=== PATIENT | male | born 1975 | race Caucasian/White ===

== ENCOUNTER 2016-10-11 16:26 | Emergency (ER) | payer MEDICAID ==
[2016-10-11] MEDS ORDERED: Sodium Chloride 0.9% 1,000 ML IV ONE (17:59)
[2016-10-11] MEDS ORDERED: Belladonna-Phenobarbital PO STA (17:59)
[2016-10-11] MEDS ORDERED: Lidocaine 2% Viscous 100 ml PO STA (17:59)
[2016-10-11] MEDS ORDERED: Aluminum Hydroxide/Magnesium Hydroxide Susp (30 mL) PO STA (17:59)
[2016-10-11 18:16] LABS: RBC URINE < 1 /hpf (0-3); URINE BILIRUBIN NEGATIVE (NEGATIVE); URINE BLOOD NEGATIVE (NEGATIVE); URINE COLOR Straw (YELLOW); URINE GLUCOSE (UA) NORMAL (Normal); URINE KETONE NEGATIVE (NEGATIVE); URINE LEUKOCYTE ESTERASE NEG Leu/uL (Negative); URINE PROTEIN NEGATIVE (NEGATIVE); URINE UROBILINOGEN NORMAL mg/dL (0.2-1.0)
--- NOTE | 2016-10-11 18:37 | C.PDOC ---
History Of Present Illness <Kamila Pascal - Last Filed: 10/11/16 19:00> <YaahansaSurya - Last Filed: 10/11/16 22:44> The patient, a 41 y/o male, presents to the ED for evaluation of severe acid reflux which began around 6 days ago. Patient also reports abdominal pain which he describes as a "soreness and burning." Patient states he has taken Zantac, Pepto-Bismol, and Tums without relief. Patient states he has a good appetite but experiences a heart burning sensation whenever he eats any food. Patient admits he quit smoking around 2 weeks ago; he also states he drank a couple beers around 4 days ago. Otherwise, he denies fever, chills, chest pain, vomiting, diarrhea, constipation. (GwynKamila L) History Per: Patient History/Exam Limitations: no limitations Onset/Duration Of Symptoms: Days (6) Current Symptoms Are (Timing): Still Present Radiation Of Pain To:: None Quality Of Discomfort: Burning, Other (+soreness ) Associated Symptoms: denies: Fever, Chills, Nausea, Vomiting, Diarrhea, Chest Pain, Constipation Exacerbating Factors: Food Alleviating Factors: denies: OTC Meds Last Bowel Movement: Today Additional History Per: Patient <Kamila Pascal - Last Filed: 10/11/16 19:00> <GermanSurya - Last Filed: 10/11/16 22:44> Time Seen by Provider: 10/11/16 17:53 Chief Complaint (Nursing): Abdominal Pain Past Medical History Reviewed: Historical Data, Nursing Documentation, Vital Signs - Medical History PMH: HTN Family History: States: Unknown Family Hx - Social History Hx Alcohol Use: Yes Hx Substance Use: No - Immunization History Hx Tetanus Toxoid Vaccination: No Hx Influenza Vaccination: No Hx Pneumococcal Vaccination: No <Kamila Pascal - Last Filed: 10/11/16 19:00> Vital Signs: Last Vital Signs Temp 98.8 F 10/11/16 16:45 Pulse 107 H 10/11/16 16:45 Resp 18 10/11/16 16:45 BP 153/95 H 10/11/16 16:45 Pulse Ox 96 10/11/16 19:02 Review Of Systems Except As Marked, All Systems Reviewed And Found Negative. Constitutional: Negative for: Fever, Chills Cardiovascular: Negative for: Chest Pain Gastrointestinal: Positive for: Abdominal Pain, Other (+acid reflux). Negative for: Nausea, Vomiting, Diarrhea, Constipation <Kamila Pascal - Last Filed: 10/11/16 19:00> Physical Exam - Physical Exam Appears: Non-toxic, No Acute Distress Skin: Normal Color, Warm, Dry Head: Atraumatic, Normacephalic Eye(s): bilateral: Normal Inspection, EOMI Oral Mucosa: Moist Neck: Supple Chest: Symmetrical, No Deformity, No Tenderness Cardiovascular: Rhythm Regular, No Murmur Respiratory: Normal Breath Sounds, No Rales, No Rhonchi, No Wheezing Gastrointestinal/Abdominal: Soft, No Tenderness, No Guarding, No Rebound Back: Normal Inspection, No Vertebral Tenderness, No Paraspinal Tenderness Extremity: Bilateral: Atraumatic, Normal ROM Neurological/Psych: Oriented x3, Normal Speech Gait: Steady <Kamila Pascal Last Filed: 10/11/16 19:00> ED Course And Treatment O2 Sat by Pulse Oximetry: 96 (on RA) Pulse Ox Interpretation: Normal <Kamila Pascal - Last Filed: 10/11/16 19:00> - Laboratory Results Result Diagrams: 10/11/16 19:00 10/11/16 19:00 O2 Sat by Pulse Oximetry: 96 Pulse Ox Interpretation: Normal Reevaluation Time: 22:41 Reassessment Condition: Improved <Surya Porter - Last Filed: 10/11/16 22:44> Medical Decision Making <Kamila Pascal - Last Filed: 10/11/16 19:00> <Surya Porter - Last Filed: 10/11/16 22:44> Medical Decision Making: Impression: 41 y/o male with acid reflux and abdominal pain Plan: * labs * EKG * PO * Maalox PO * Pepcid IV * Lidocaine 2% Viscous PO * IV fluids * reassess and disposition Progress Notes: Case signed out to DR Porter pending labs, re-eval and dispo (Kamila Pascal) Upon provider reevaluation patient is feeling better, is medically stable, and requires no further treatment in the ED at this time. Patient will be discharged home with Rx for protonix . Counseling was provided and all questions were answered regarding diagnosis and need for follow up with dr mitchell. There is agreement to discharge plan. Return if symptoms persist or worsen. (Surya Porter) Disposition - Disposition Disposition Time: 19:02 - POA Present On Arrival: None <Kamila Pascal - Last Filed: 10/11/16 19:00> Counseled Patient/Family Regarding: Studies Performed, Diagnosis, Need For Followup, Rx Given - Disposition Disposition Time: 19:00 <Surya Porter - Last Filed: 10/11/16 22:44> - Disposition Referrals: Franco Mitchell MD [Medical Doctor] - Disposition: HOME/ ROUTINE Condition: FAIR Prescriptions: Pantoprazole Sodium [Protonix] 20 mg PO DAILY #15 tablet. Instructions: Abdominal Pain (ED), Gastroesophageal Reflux Disease (ED) - Clinical Impression Clinical Impression: Dyspepsia, Abdominal pain - PA / APARTMENT LOCATOR / Resident Statement MD/DO has reviewed & agrees with the documentation as recorded. - Scribe Statement The provider has reviewed the documentation as recorded by the Scribe (Patricia Calvert) <Kamila Pascal - Last Filed: 10/11/16 19:00> <Surya Porter - Last Filed: 10/11/16 22:44> - Scribe Statement All medical record entries made by the Scribe were at my direction and personally dictated by me. I have reviewed the chart and agree that the record accurately reflects my personal performance of the history, physical exam, medical decision making, and the department course for this patient. I have also personally directed, reviewed, and agree with the discharge instructions and disposition. (Kamila Pascal) Physician Patient Turnover Patient Signed Over To: Surya Porter Handoff Comments: pending labs, re-eval and dispo <Kamila Pascal - Last Filed: 10/11/16 19:00>
[2016-10-11] MEDS ORDERED: Sodium Chloride 0.9% 1,000 ML ONE (19:02)
[2016-10-11] MEDS ORDERED: Aluminum Hydroxide/Magnesium Hydroxide Susp (30 mL) ONE (19:02)
[2016-10-11] MEDS ORDERED: Belladonna-Phenobarbital ONE (19:02)
[2016-10-11 19:10] LABS: CHLORIDE 100 mmol/L (98-107)
[2016-10-11 19:11] LABS: POTASSIUM 3.8 mmol/L (3.6-5.2); SODIUM 138 mmol/L (132-148)
[2016-10-11 19:13] LABS: ALB/GLOB RATIO 1.5 (1.0-2.1); ALKALINE PHOSPHATASE 76 U/L (38-126); AST/SGOT 32 U/L (17-59); BILIRUBIN,TOTAL 0.6 mg/dL (0.2-1.3); CARBON DIOXIDE 23 mmol/L (22-30); GFR AFRICAN-AMERICAN > 60; TOTAL PROTEIN 7.8 g/dL (6.3-8.3)
[2016-10-11 19:14] LABS: ALT/SGPT 37 U/L (21-72); BLOOD UREA NITROGEN 14 mg/dL (9-20); CALCIUM 10.6 mg/dl (8.6-10.4); GLUCOSE,RANDOM 145 mg/dL (75-110)
[2016-10-11 19:25] LABS: BASO # 0.1 K/uL (0.0-0.2); BASO % 0.9 % (0.0-2.0); EOS # 0.3 K/uL (0.0-0.7); EOS % 3.7 % (0.0-4.0); LYMPH # 2.6 K/uL (1.0-4.3); LYMPH % 30.1 % (20.0-40.0); MEAN CORPUSCULAR HEMOGLOBIN 29.7 pg (27.0-31.0); MEAN CORPUSCULAR HGB CONC 33.5 g/dL (33.0-37.0); MEAN PLATELET VOLUME 11.1 fL (7.2-11.7); MONO # 0.6 K/uL (0.0-0.8); MONO % 6.5 % (0.0-10.0); NRBC % 0.1 % (0.0-2.0); RED CELL DISTRIBUTION WIDTH 12.9 % (11.5-14.5); WHITE BLOOD COUNT 8.7 K/uL (4.8-10.8)
[2016-10-11 19:34] LABS: MEAN CELL VOLUME 88.8 fL (80.0-94.0)
[2016-10-11] MEDS ORDERED: Iohexol 350mg/ml 100 ML ONE (21:02)
[2016-10-11 23:20] VITALS: BP 162/96; PULSE 72; RESP 22; TEMP 98.2; O2SAT 98
--- NOTE | 2016-10-12 08:39 | CT ---
PROCEDURE: CT Abdomen and Pelvis with contrast HISTORY: Left lower quadrant pain, mid epigastric pain. COMPARISON: 11/28/2015. CT abdomen and pelvis. Summary of findings on the comparison examination: Pancreatitis, enlarged fatty liver. TECHNIQUE: Contrast dose: 100 cc Omnipaque 350. Radiation dose: Total exam DLP = 1023.57. MGy-cm. This CT exam was performed using one or more of the following dose reduction techniques: Automated exposure control, adjustment of the mA and/or kV according to patient size, and/or use of iterative reconstruction technique. FINDINGS: LOWER THORAX: Unremarkable. LIVER: Hepatomegaly, hepatic steatosis. No gross lesion or ductal dilatation. GALLBLADDER AND BILE DUCTS: Unremarkable. PANCREAS: Unremarkable. No gross lesion or ductal dilatation. SPLEEN: Unremarkable. ADRENALS: Unremarkable. No mass. KIDNEYS AND URETERS: Unremarkable. No hydronephrosis. No solid mass. VASCULATURE: Unremarkable. No aortic aneurysm. BOWEL: Constipation without fecal impaction or obstruction. APPENDIX: Normal appendix. PERITONEUM: Unremarkable. No free fluid. No free air. LYMPH NODES: Unremarkable. No enlarged lymph nodes. BLADDER: Unremarkable. REPRODUCTIVE: Unremarkable. BONES: No acute fracture. OTHER FINDINGS: None. IMPRESSION: No acute findings related to/accounting for the clinical presentation. Additional benign and/or incidental findings described above. Concordant results (preliminary interpretation) provided by [facility]. Procedure Completed: 21:53. Preliminary ([facility]) Report: Dictated and Authenticated: 22:32. Final Interpretation: 08:37. October 12, 2016.
== END 2016-10-11 23:13 | disposition home or self-care (01) ==
LOC: C.ER 16:26
DX: R10.13 Epigastric pain (principal); R10.9 Unspecified abdominal pain; I10 Essential (primary) hypertension; Z87.891 Personal history of nicotine dependence
CPT/HCPCS: 74177; 80053; 81001; 83690; 85025; 96374; 99285; J7040; Q9967